=== PATIENT | male | born 1965 | race Caucasian/White ===

== ENCOUNTER 2019-04-10 12:48 | Day surgery (SDC) | payer MEDICARE, BC ==
--- NOTE | 2019-04-04 17:35 | CONS ---
DATE OF ADMISSION: 08/11/2015 DATE OF CONSULTATION: TYPE OF CONSULTATION: Preoperative gastroenterology. Dear Dr. Silva: I thank you very much for this kind referral. HISTORY OF PRESENT ILLNESS: Mr. Fausto Russo is a 53-year-old male patient who has been referred to me for further evaluation of chronic heartburn not responding to therapy with Zantac. No past hi story of peptic ulcer disease. Not on nonsteroidal anti-inflammatory agents. No history of gallston es or liver disease. The patient also complains of change in the bowel habit with worsening constipa tion. No rectal bleeding. No past history of colon neoplasm. Not a hypertensive or diabetic. No h eart disease, lung problem or kidney disease. The patient has history of depression. He is on multi ple psychotherapeutic medications. SOCIAL HISTORY: Nonsmoker. No alcohol abuse. FAMILY HISTORY: The patient's son of stomach cancer. ALLERGIES: NO DRUG ALLERGIES. MEDICATIONS: Zantac 300 mg p.o. at bedtime. He takes Prozac and clonazepam. He does not remember t he dosage. PHYSICAL EXAMINATIN: VITAL SIGNS: He is 5 feet 4 inches tall and weighs 140 pounds, BMI 24, blood pressure 124/72. HEART: Normal heart sounds. LUNGS: Clear. ABDOMEN: Soft, no masses. Normal bowel sounds. NEUROLOGIC: Normal neurological exam. IMPRESSION: 1. Chronic heartburn, not responding to therapy with Zantac. 2. Change in the bowel habit with worsening constipation. 3. History of depression. The patient is on multiple psychotherapeutic medications. 4. The patient states his son of gastric cancer. PLAN: 1. Nexium 40 mg p.o. q.a.m. 2. Zantac 300 mg p.o. at bedtime. 3. Endoscopy and colonoscopy for further evaluation. 4. Because of the multiple psychotherapeutic medications he has been taking, he will be resistant to narcotics and he needs monitored anesthesia care. The procedures and possible complications are well explained to the patient. He understands and cons ents to the procedures. I thank you once again. With warmest personal regards, Dictated By: MILI LEOS/NEISHA Conf#: [id number] DID#: [id number] CC: CALEB SILVA MD;*[facility]*
[~2019-04-10] VITALS: Ht 162.6 cm; Wt 68.6 kg
[~2019-04-10 12:48] MED LIST: BUPR75TA9 PO; CLON2TAB15 PO; DEXL60CA2 PO; FLUO10CA26 PO
[2019-04-10 13:38] VITALS: Ht 162.6 cm; Wt 68.6 kg
[2019-04-10] MEDS ORDERED: ZANTAC (13:39)
[2019-04-10 14:00] VITALS: BP 130/77; PULSE 59; RESP 18
--- NOTE | 2019-04-10 14:32 | PREAC ---
Date/Time of Note Date/Time of Note DATE: 04/10/19 TIME: 14:31 Anesthesia Eval and Record Evaluation Time Pre-Procedure Interview DATE: 04/10/19 TIME: 14:31 Age 53 Sex male NPO: 8 hrs Preoperative diagnosis ABDOMINAL PAIN, CHANGE IN BOWEL HABITS, HEARTBURN Planned procedure EGD, COLONOSCOPY WITH BIOPSIES Past Medical History Past Medical History: Includes Psych: Depression, Anxiety Surgery & Anesthesia Issues No known issue Meds Anticoagulation: No Beta Bryan within 24 hr: No Reason Beta Bryan not given: Pt. not on B-Bryan Reported Medications [Zantac] No Conflict Check 04/10/19 Dexlansoprazole (Dexilant) 60 Mg Dereck., 60 MG PO DAILY, CAP 04/07/15 Fluoxetine Hcl* (Prozac*) 10 Mg Capsule, 20 MG PO DAILY, CAP 04/07/15 Clonazepam (Klonopin) 2 Mg Tablet, 2 MG PO DA 09/08/11 Bupropion Hcl (Wellbutrin) 75 Mg Tablet, 75 MG PO 09/08/11 Meds reviewed: Yes Allergies Coded Allergies: No Known Allergy (Verified , 04/10/19) Allergies Reviewed: Yes Labs/Studies Labs Reviewed: Reviewed by anesthesiologist test: Negative Pre-procedure Exam Last vitals Vital Signs Date Temp Pulse Resp B/P (MAP) Pulse Ox O2 O2 Flow FiO2 Time Delivery Rate 04/10/19 97.5 59 18 130/77 98 Room Air 14:00 (94) Airway: Adequate mouth opening, Adequate thyromental dist Mallampati: Mallampati II Teeth: Normal Lung: Normal Heart: Normal ASA Physical Status ASA physical status: 2 Emergency: None Planned Anesthetic General/MAC: MAC Planned Pain Management Parenteral pain med Pre-operative Attestations Prior to commencing anesthesia and surgery, the patient was re-evaluated, there was verification of: *The patient's identity *The results of appropriate recent lab work and preoperative vital signs *The above evaluation not changing prior to induction *Anesthetic plan, risk benefits, alternative and complications discussed with patient/family; questions answered; patient/family understands, accepts and wishes to proceed. Nguyễn Melchor M.D. April 10, 2019 14:32
[2019-04-10] MEDS ORDERED: LIDOCAINE 100 MG SYRINGE ONE (14:33)
[2019-04-10] MEDS ORDERED: FENTAnyl 50 MCG/ML VIAL ONE (14:33)
[2019-04-10] MEDS ORDERED: PROPOFOL 40 ML ONE (14:33)
--- NOTE | 2019-04-10 15:21 | PAC ---
Date/Time of Note Date/Time of Note DATE: 04/10/19 TIME: 15:21 Post-Anesthesia Notes Post-Anesthesia Note Last documented vital signs Vital Signs Date Temp Pulse Resp B/P (MAP) Pulse Ox O2 O2 Flow FiO2 Time Delivery Rate 04/10/19 97.5 59 18 130/77 98 Room Air 14:00 (94) Activity: WNL Respiratory function: WNL Cardiovascular function: WNL Mental status: Baseline Pain reasonably controlled: Yes Hydration appropriate: Yes Nausea/Vomiting absent: Yes Nguyễn Melchor M.D. April 10, 2019 15:21
[2019-04-10 15:23] VITALS: BP 123/86; PULSE 70
== END 2019-04-10 15:54 | disposition home or self-care (01) ==
LOC: GIL 12:48
PROVIDERS: ATTEND Internal Medicine Gastroenterology
DX: R19.4 Change in bowel habit (principal); K64.8 Other hemorrhoids; K63.89 Other specified diseases of intestine; K21.9 Gastro-esophageal reflux disease without esophagitis
CPT/HCPCS: 43239; 45378; 88305; J2001; J3010; 88312